=== PATIENT | male | born 1960 | race Caucasian/White ===

== ENCOUNTER 2016-12-15 17:51 | Inpatient (IN) | payer BC ==
[~2016-12-15] VITALS: Ht 177.8 cm; Wt 108.7 kg
--- NOTE | ~2016-12-15 | EKG ---
[place], [place] ELECTROCARDIOGRAM REPORT NAME: ROSALINA CHRISTINE UNIT #: [id number] ROOM: 506 DOCTOR: JOSE MIGUEL GLASS,ADRI BIRTHDATE: [birth year] DOS: 12/15/2016 TIME: 1820 hours. INTERPRETATION: 1. Sinus tachycardia. 2. Incomplete right bundle branch block. ADRI GILLESPIE MD CM:[id number]:ELECTROCARDIOGRAM REPORT [id number] ADRI GILLESPIE MD
[~2016-12-15 17:51] MED LIST: OPANA ER20 MG PO; PRAVACHOL10 MG PO; PRISTIQ50 MG PO; Percocet 325 MG1 TAB PO
[2016-12-15 17:59] VITALS: BP 142/89
[2016-12-15 18:30] LABS: BASO % 0.2 % (0.0-1.0); EOS # 0.1 10*3/uL (0.0-0.4); EOS % 0.3 % (1.0-4.0); HEMOGLOBIN 14.4 g/dl (14.0-18.0); MEAN CELL VOLUME 91.7 fl (80.0-94.0); MEAN CORPUSCULAR HGB 31.4 pg (27.0-31.0); MEAN CORPUSCULAR HGB CONC 34.3 g/dl (33.0-37.0); MEAN PLATELET VOLUME 9.4 fl (9.6-12.3); MONO # 1.2 10*3/uL (0.1-1.0); MONO % 7.2 % (3.0-9.0); NEUT # 14.8 10*3/uL (2.3-7.9); PLATELET COUNT AUTOMATED 147 10*3/uL (130-400); RED BLOOD COUNT 4.58 10*6/uL (4.50-5.90); WHITE BLOOD COUNT 17.2 10*3/uL (4.8-10.8)
[2016-12-15 18:47] LABS: ALBUMIN 3.4 gm/dl (3.1-4.5); ALKALINE PHOSPHATASE 92 U/L (45-117); BUN 13 mg/dl (7-24); CHLORIDE 101 mmol/L (98-107); CREATININE 0.95 mg/dL (0.70-1.30); POTASSIUM 4.2 mmol/L (3.5-5.1); SGOT/AST 17 IU/L (3-35); SGPT/ALT 31 U/L (12-78); SODIUM 137 mmol/L (136-145); TOTAL PROTEIN 7.2 gm/dL (6.4-8.2)
[2016-12-15 18:49] LABS: TROPONIN I < 0.015 ng/ml (<0.045)
[2016-12-15 18:56] LABS: BILIRUBIN NEGATIVE (NEGATIVE); BLOOD 3+ (NEGATIVE); CLARITY CLOUDY (CLEAR); COLOR YELLOW (YELLOW); GLUCOSE NEGATIVE (NEGATIVE); KETONE NEGATIVE (NEGATIVE); LEUKO ESTERASE 3+ (NEGATIVE); NITRITE POSITIVE (NEGATIVE); PH 6.5 (5.0-9.0); UROBILINOGEN 0.2 E.U./dl (0.2-1.0)
[2016-12-15 19:04] LABS: BACTERIA 4+; EPITHELIAL CELLS 0-2; RBC TNTC rbc/hpf (0-2); WBC TNTC wbc/hpf (0-5)
[2016-12-15 19:45] VITALS: BP 165/86
[2016-12-15 20:48] VITALS: BP 124/73
--- NOTE | 2016-12-15 20:48 | NUR ---
A 56, admitted to , under the services of NBA Salmon DO with a diagnosis of SEPSIS, UTI. Chief complaint is FEVER TODAY AFTER HAVING BIOPSY DONE ON PROSTATE ON SATURDAY. HAVING DIFFICULTY URINATING. Patient arrived via stretcher from ER. Monitor applied. Initial assessment completed. Vital signs taken and recorded. NBA SALMON DO notified of admission to the unit. Orders received. See assessment for past medical history, medications and allergies. Patient and/or family oriented to unit. [facility] visitation policy reviewed. Clothing/patient valuable form completed. DEBI PERDUE
--- NOTE | 2016-12-15 21:35 | NUR ---
NOTIFIED DR. JEFFREY OF PT. CONDITION,VITAL SIGNS. ORDER RECEIVED TO ADD VANCOMYCIN.
--- NOTE | 2016-12-15 22:39 | NUR ---
PT. RETURNED FROM CT VIA W/C. NORCO GIVEN PER ORDER FOR HEADACHE/JOINT PAIN RATED "9". SEE JUN.
--- NOTE | 2016-12-15 23:30 | NUR ---
PT. STATED GRACE IS HELPING WITH DISCOMFORT.
[2016-12-16] VITALS: BP 114/61
--- NOTE | 2016-12-16 03:58 | NUR ---
TYLENOL GIVEN PER ORDER FOR HEADACHE AND GENERAL BODY ACHES. SEE MAR.
[2016-12-16 04:00] VITALS: BP 125/72
--- NOTE | 2016-12-16 05:00 | NUR ---
PER PT. TYLENOL HELPING WITH GENERAL ACHES AND HEADACHE.
[2016-12-16 06:41] LABS: BASO % 0.2 % (0.0-1.0); EOS % 0.1 % (1.0-4.0); HEMOGLOBIN 13.6 g/dl (14.0-18.0); LYMPH # 1.6 10*3/uL (1.3-4.4); LYMPH % 9.4 % (27.0-41.0); MEAN CORPUSCULAR HGB 30.8 pg (27.0-31.0); MEAN CORPUSCULAR HGB CONC 33.2 g/dl (33.0-37.0); MEAN PLATELET VOLUME 9.8 fl (9.6-12.3); MONO # 1.5 10*3/uL (0.1-1.0); MONO % 8.7 % (3.0-9.0); NEUT % 80.8 % (47.0-73.0); PLATELET COUNT AUTOMATED 134 10*3/uL (130-400); RED BLOOD COUNT 4.41 10*6/uL (4.50-5.90); RED CELL DISTRI WIDTH 12.1 % (0-14.5); WHITE BLOOD COUNT 17.3 10*3/uL (4.8-10.8)
[2016-12-16 07:08] LABS: ALKALINE PHOSPHATASE 75 U/L (45-117); BUN 9 mg/dl (7-24); CHLORIDE 106 mmol/L (98-107); CHOLESTEROL 161 mg/dL (<200); CREATININE 0.79 mg/dL (0.70-1.30); HDL CHOLESTEROL 61 mg/dl (40-60); LDL CHOLESTEROL 88 mg/dL (9-159); MAGNESIUM 2.2 mg/dL (1.5-2.1); PHOSPHOROUS 2.4 mg/dL (2.5-4.9); POTASSIUM 3.6 mmol/L (3.5-5.1); SGOT/AST 14 IU/L (3-35); SGPT/ALT 26 U/L (12-78); SODIUM 138 mmol/L (136-145); TOTAL PROTEIN 6.4 gm/dL (6.4-8.2); TRIGLYCERIDES 58 mg/dl (<150); VLDL CHOLESTEROL 12 mg/dL (6-40)
[2016-12-16 07:17] LABS: VITAMIN D, 25-HYDROXY 29.8 ng/mL (30-100)
[2016-12-16] MEDS ORDERED: VITAMIN D5000 UNIT PO (07:22)
[2016-12-16 07:37] VITALS: BP 111/63
--- NOTE | 2016-12-16 09:41 | NUR ---
PT GIVEN PO NORCO PER PRN ORDER FOR C/O JOINT PAIN/DISCOMFORT. WILL MONITOR EFFECTIVENESS. CALL LIGHT WITHIN REACH.
--- NOTE | 2016-12-16 11:13 | NUR ---
PAIN BEING RELIEVED PER PT.
[2016-12-16 11:43] VITALS: BP 113/72
--- NOTE | 2016-12-16 14:59 | NUR ---
PT GIVEN PO PERCOCET PER PRN ORDER FOR C/O PAIN/DISCOMFORT. WILL MONITOR EFFECTIVENESS.
[2016-12-16 16:00] VITALS: BP 142/80
--- NOTE | 2016-12-16 16:36 | NUR ---
PERCOCET RELIEVING PAIN PER PT.
--- NOTE | 2016-12-16 19:54 | NUR ---
TYLENOL GIVEN PER ORDER FOR GENERALIZED BODY ACHES. SEE MAR. DUKES EMPTIED FOR 1650CC. ENCOURAGE PATIENT TO GET UP AND AMBULATE IN ROOM/HALLWAY. NO SLIP SOCKS GIVEN, GOWN GIVEN. EDUCATION DONE OF HOW CULTURES AND PROCESS OF WORKS FAR MEDICATIONS/INFECTION PROCESS AND ALSO NEED TO GET OUT OF BED A MOVE. PT. VOICED UNDERSTANDING WITH ALL.
[2016-12-16 20:00] VITALS: BP 127/67
--- NOTE | 2016-12-16 20:50 | NUR ---
PER PT. TYLENOL EFFECTIVE FOR HEADACHE BUT NOT JOINT PAIN.
--- NOTE | 2016-12-16 22:54 | NUR ---
PERCOCET GIVEN FOR JOINT PAIN PER PT, RATED "7" SEE MAR.
--- NOTE | 2016-12-16 23:50 | NUR ---
PER PT. PERCOCET EFFECTIVE FOR PAIN.
[2016-12-17] VITALS: BP 121/67
--- NOTE | 2016-12-17 05:42 | NUR ---
TYLENOL GIVEN PER ORDER FOR GENERAL BODY ACHES RATED "4-5" AND HEADACHE RATED "4". SEE MAR.
--- NOTE | 2016-12-17 06:40 | NUR ---
TYLENOL EFFECTIVE FOR HEADACHE/BODY ACHE PER PT.
[2016-12-17 08:00] VITALS: BP 114/76
--- NOTE | 2016-12-17 08:26 | NUR ---
MEDICATED FRO BACK PAIN OF 6/10.
--- NOTE | 2016-12-17 10:21 | NUR ---
STATES THAT EARLIER MEDICATION WAS EFFECTIVE.
[2016-12-17 11:20] LABS: BASO # 0.1 10*3/uL (0.0-0.1); BASO % 0.4 % (0.0-1.0); EOS # 0.2 10*3/uL (0.0-0.4); EOS % 1.1 % (1.0-4.0); HEMATOCRIT 41.8 % (42.0-52.0); HEMOGLOBIN 13.8 g/dl (14.0-18.0); LYMPH # 2.3 10*3/uL (1.3-4.4); LYMPH % 16.7 % (27.0-41.0); MEAN CELL VOLUME 93.3 fl (80.0-94.0); MEAN CORPUSCULAR HGB 30.8 pg (27.0-31.0); MEAN PLATELET VOLUME 9.4 fl (9.6-12.3); MONO # 0.8 10*3/uL (0.1-1.0); MONO % 5.6 % (3.0-9.0); NEUT # 10.3 10*3/uL (2.3-7.9); NEUT % 75.6 % (47.0-73.0); PLATELET COUNT AUTOMATED 142 10*3/uL (130-400); RED BLOOD COUNT 4.48 10*6/uL (4.50-5.90); WHITE BLOOD COUNT 13.6 10*3/uL (4.8-10.8)
[2016-12-17 11:38] LABS: ALKALINE PHOSPHATASE 87 U/L (45-117); BUN 10 mg/dl (7-24); CHLORIDE 106 mmol/L (98-107); CREATININE 0.77 mg/dL (0.70-1.30); POTASSIUM 4.4 mmol/L (3.5-5.1); SGOT/AST 18 IU/L (3-35); SGPT/ALT 31 U/L (12-78); SODIUM 139 mmol/L (136-145)
[2016-12-17 12:00] VITALS: BP 120/76
[2016-12-17 16:00] VITALS: BP 122/80
[2016-12-17 20:00] VITALS: BP 133/79
--- NOTE | 2016-12-17 20:59 | NUR ---
PATIENT GIVEN PERCOCET FOR 6/10 BACK PAIN AND RSTORIL TO HELP HIM SLEEP.
--- NOTE | 2016-12-17 22:23 | NUR ---
PERCOCET EFFECTIVE PAIN IS NOW 2/10.
[2016-12-18] VITALS: BP 115/75
--- NOTE | 2016-12-18 02:00 | NUR ---
Patient resting quietly with no c/o discomfort. Respirations easy and regular. Vital signs stable. No overt distress. PAUL WANG R
[2016-12-18 06:54] LABS: BASO % 0.4 % (0.0-1.0); EOS # 0.3 10*3/uL (0.0-0.4); EOS % 2.7 % (1.0-4.0); LYMPH % 19.5 % (27.0-41.0); MEAN CELL VOLUME 92.7 fl (80.0-94.0); MEAN CORPUSCULAR HGB 30.9 pg (27.0-31.0); MEAN CORPUSCULAR HGB CONC 33.3 g/dl (33.0-37.0); MEAN PLATELET VOLUME 9.6 fl (9.6-12.3); MONO # 0.7 10*3/uL (0.1-1.0); MONO % 6.8 % (3.0-9.0); NEUT # 7.1 10*3/uL (2.3-7.9); NEUT % 69.9 % (47.0-73.0); PLATELET COUNT AUTOMATED 170 10*3/uL (130-400); RED BLOOD COUNT 4.53 10*6/uL (4.50-5.90); RED CELL DISTRI WIDTH 12.1 % (0-14.5); WHITE BLOOD COUNT 10.1 10*3/uL (4.8-10.8)
[2016-12-18 07:30] LABS: BUN 11 mg/dl (7-24); CHLORIDE 104 mmol/L (98-107); POTASSIUM 4.3 mmol/L (3.5-5.1); SODIUM 140 mmol/L (136-145)
--- NOTE | 2016-12-18 07:30 | NUR ---
ASSUMED CARE OF PT AT THIS TIME, PT IS ALERT AND ORIETNED, SITTING UP IN CHIAR AT BEDSIDE
[2016-12-18 08:00] VITALS: BP 114/83
--- NOTE | 2016-12-18 08:41 | NUR ---
CALL PLACED TO OFFICE AT THIS TIME SPOKE WITH SUZETTE, R/T N/O FOR CONSULT OF PROSTITIS AND RECOMMENDATION OF ATB
--- NOTE | 2016-12-18 09:00 | NUR ---
Director Of Personnel in to talk to patient. Patient states lives at home with alone. There are few steps in the home. Physician: kareem natarajan Pharmacy: [facility] Hospital services: none Patient's level of ADLs: INDEPENDENT Patient has working utilities: all working DME: none Follow-up physician's appointment after d/c: will be made by hospitalist nurse director upon discharge Does patient want to access PORTAL?: no Discharge plan discussed with patient, patient lives at home alone, is independent in adls and ambulation, works and drives, patient states he will be going back home and denies any home needs. REJI COTA
--- NOTE | 2016-12-18 10:05 | NUR ---
PT REFUSED LOVENOX INJECTION AT THIS TIME, STATES THAT HE DOES NOT WANT THIS MEDICATION, EDUCATION PROVIDED BUT INEFFECTIVE. PT C/O BACK PAIN RATING 8/10, REQUESTED AND ADMINISTERED PRN PAIN MEDICATION ORDERED, WILL MONITOR EFFECTS
--- NOTE | 2016-12-18 11:05 | NUR ---
PRN PAIN MEDICATION EFFECTIVE, PT STATES DECREASED PAIN LEVEL IN BACK
[2016-12-18 12:00] VITALS: BP 130/81
--- NOTE | 2016-12-18 12:45 | NUR ---
insurance demos given to yaa, reference number is [id number], emailed corporate fax number [phone]
[2016-12-18 16:00] VITALS: BP 126/78
--- NOTE | 2016-12-18 18:05 | NUR ---
PT C/O PAIN IN THE BACK, REQUESTED AND ADMINSITERED PO PRN PAIN MEDICATION ORDERED WILL MONITOR EFFECTS
--- NOTE | 2016-12-18 19:50 | NUR ---
PT AWAKE IN BED. DENIES DYSURIA. CALL LIGHT IN REACH.
[2016-12-18 20:00] VITALS: BP 122/81; BP 122/851
--- NOTE | 2016-12-18 23:15 | NUR ---
PT MEDICATED WITH PRN MORPHINE IVP AND RESTORIL PO FOR C/O BACK PAIN AND INSOMNIA.
[2016-12-19] VITALS: BP 135/84
--- NOTE | 2016-12-19 | NUR ---
PT RESTING QUIETLY IN BED. NO FURTHER C/O PAIN/INSOMNIA.
--- NOTE | 2016-12-19 07:26 | NUR ---
PT OFF FLOOR TO HAVE PICC LINE INSERTED
--- NOTE | 2016-12-19 07:29 | NUR ---
PATIENT OFF FLOOR FOR PICC LINE AT THIS TIME.
[2016-12-19 08:00] VITALS: BP 113/87
[2016-12-19 08:53] LABS: BASO # 0.1 10*3/uL (0.0-0.1); BASO % 0.6 % (0.0-1.0); EOS # 0.3 10*3/uL (0.0-0.4); EOS % 3.1 % (1.0-4.0); HEMATOCRIT 44.4 % (42.0-52.0); HEMOGLOBIN 14.9 g/dl (14.0-18.0); LYMPH # 1.9 10*3/uL (1.3-4.4); LYMPH % 20.9 % (27.0-41.0); MEAN CELL VOLUME 92.9 fl (80.0-94.0); MEAN CORPUSCULAR HGB 31.2 pg (27.0-31.0); MEAN CORPUSCULAR HGB CONC 33.6 g/dl (33.0-37.0); MEAN PLATELET VOLUME 9.2 fl (9.6-12.3); MONO # 0.6 10*3/uL (0.1-1.0); MONO % 7.1 % (3.0-9.0); NEUT % 67.6 % (47.0-73.0); PLATELET COUNT AUTOMATED 181 10*3/uL (130-400); RED BLOOD COUNT 4.78 10*6/uL (4.50-5.90); WHITE BLOOD COUNT 8.9 10*3/uL (4.8-10.8)
[2016-12-19 09:03] LABS: BUN 13 mg/dl (7-24); CHLORIDE 104 mmol/L (98-107); CREATININE 0.69 mg/dL (0.70-1.30); SODIUM 140 mmol/L (136-145)
--- NOTE | 2016-12-19 09:38 | NUR ---
case management visits with patient, discussed with him home iv antibiotics, patient stated that he would be fine administering them to himself, also discussed a VNA and he chose [facility], will notify [facility] when patient is medically stable for discharge
--- NOTE | 2016-12-19 09:39 | NUR ---
PT REQUESTED PAIN MEDICATION FOR BACK PAIN, ADMINISTERED PRN PAIN MEDICATION ORDERED. WILL MONITOR EFFECTS
[2016-12-19 12:00] VITALS: BP 122/76
[2016-12-19] MEDS ORDERED: CEFTAZIDIME IV (12:26)
--- NOTE | 2016-12-19 12:50 | NUR ---
case management recieved a script for patient's home iv antibiotics, called [facility], spoke to Polly, patient's information faxed to her, patient will recieved his last dose tonight prior to discharge and services at home will start tomorrow in am, regional planner will notify [facility]
[2016-12-19] MEDS ORDERED: B12,B-12,B 12500 MC1 PO (14:01)
--- NOTE | 2016-12-19 14:35 | NUR ---
case management received a call from Ana at [facility], patient has a $1000 deductible that he has met $396 of, he will need to pay $300 upon delivery of medication, Ana talked with patient and he is able to pay this amount, [facility] will deliver his medication and [facility] will start care tomorrow in am, hospitalist nurse director notified
--- NOTE | 2016-12-19 16:32 | NUR ---
Discharge instructions reviewed with patient/family. Patient receptive and verbalizes understanding. Follow-up care arranged. Written instructions given to patient/family. LUIS WOLFE
== END 2016-12-19 16:32 | disposition home health service (06) | DRG 872 ==
LOC: ED 17:51 → EDHOLD 19:18 → 5E 19:18
PROVIDERS: Hospitalist; Internal Medicine; Nurse Practitioner Family; ADMIT Internal Medicine
PROC: 02HV33Z Insertion of Infusion Device into Superior Vena Cava, Percutaneous Approach (ICD-10-PCS; principal; 2016-12-18)
DX: A41.9 Sepsis, unspecified organism (principal); E44.0 Moderate protein-calorie malnutrition; E83.39 Other disorders of phosphorus metabolism; E83.41 Hypermagnesemia; N41.0 Acute prostatitis; N39.0 Urinary tract infection, site not specified; Z68.34 Body mass index [BMI] 34.0-34.9, adult; D64.9 Anemia, unspecified; E53.8 Deficiency of other specified B group vitamins; E55.9 Vitamin D deficiency, unspecified; E66.9 Obesity, unspecified; I10 Essential (primary) hypertension; N40.1 Benign prostatic hyperplasia with lower urinary tract symptoms; R39.11 Hesitancy of micturition; Z79.899 Other long term (current) drug therapy; Z90.49 Acquired absence of other specified parts of digestive tract; Z83.6 Family history of other diseases of the respiratory system; Z82.49 Family history of ischemic heart disease and other diseases of the circulatory system

== ENCOUNTER → 2016-12-31 | Outpatient (CLI) | payer BC ==
[~2016-12-31] MED LIST changes: +B12,B-12,B 12500 MC1 PO; +CEFTAZIDIME IV; +VITAMIN D5000 UNIT PO
[2016-12-31 16:11] LABS: BASO # 0.1 10*3/uL (0.0-0.1); BASO % 0.8 % (0.0-1.0); EOS # 0.3 10*3/uL (0.0-0.4); EOS % 3.3 % (1.0-4.0); HEMATOCRIT 42.5 % (42.0-52.0); HEMOGLOBIN 14.3 g/dl (14.0-18.0); LYMPH # 2.6 10*3/uL (1.3-4.4); LYMPH % 34.4 % (27.0-41.0); MEAN CORPUSCULAR HGB 31.3 pg (27.0-31.0); MEAN CORPUSCULAR HGB CONC 33.6 g/dl (33.0-37.0); MEAN PLATELET VOLUME 9.3 fl (9.6-12.3); MONO # 0.6 10*3/uL (0.1-1.0); MONO % 7.4 % (3.0-9.0); NEUT # 4.1 10*3/uL (2.3-7.9); NEUT % 53.7 % (47.0-73.0); PLATELET COUNT AUTOMATED 221 10*3/uL (130-400); RED BLOOD COUNT 4.57 10*6/uL (4.50-5.90); RED CELL DISTRI WIDTH 11.9 % (0-14.5); WHITE BLOOD COUNT 7.6 10*3/uL (4.8-10.8)
[2016-12-31 16:38] LABS: ALBUMIN 3.6 gm/dl (3.1-4.5); ALKALINE PHOSPHATASE 81 U/L (45-117); BILIRUBIN, DIRECT < 0.1 mg/dL (0.0-0.2); BUN 17 mg/dl (7-24); CREATININE 0.97 mg/dL (0.70-1.30); SGOT/AST 16 IU/L (3-35); SGPT/ALT 40 U/L (12-78)
== END | disposition home or self-care (01) ==
LOC: LAB 15:36
PROVIDERS: Internal Medicine Infectious Disease
DX: R79.89 Other specified abnormal findings of blood chemistry (principal); Z79.2 Long term (current) use of antibiotics

== ENCOUNTER → 2017-01-03 | Outpatient (CLI) | payer BC ==
[2017-01-03 14:23] LABS: BASO # 0.1 10*3/uL (0.0-0.1); BASO % 0.9 % (0.0-1.0); EOS # 0.2 10*3/uL (0.0-0.4); EOS % 3.2 % (1.0-4.0); HEMATOCRIT 39.5 % (42.0-52.0); LYMPH # 2.4 10*3/uL (1.3-4.4); LYMPH % 42.8 % (27.0-41.0); MEAN CELL VOLUME 94.5 fl (80.0-94.0); MEAN CORPUSCULAR HGB 31.1 pg (27.0-31.0); MEAN CORPUSCULAR HGB CONC 32.9 g/dl (33.0-37.0); MEAN PLATELET VOLUME 9.5 fl (9.6-12.3); MONO # 0.5 10*3/uL (0.1-1.0); MONO % 8.6 % (3.0-9.0); NEUT # 2.5 10*3/uL (2.3-7.9); NEUT % 44.3 % (47.0-73.0); PLATELET COUNT AUTOMATED 189 10*3/uL (130-400); RED BLOOD COUNT 4.18 10*6/uL (4.50-5.90); WHITE BLOOD COUNT 5.7 10*3/uL (4.8-10.8)
[2017-01-03 14:36] LABS: ALBUMIN 3.5 gm/dl (3.1-4.5); ALKALINE PHOSPHATASE 75 U/L (45-117); BILIRUBIN, DIRECT < 0.1 mg/dL (0.0-0.2); BUN 14 mg/dl (7-24); CREATININE 0.84 mg/dL (0.70-1.30); SGOT/AST 16 IU/L (3-35); SGPT/ALT 33 U/L (12-78); TOTAL PROTEIN 6.8 gm/dL (6.4-8.2)
== END | disposition home or self-care (01) ==
LOC: LAB 02:13
PROVIDERS: Internal Medicine Infectious Disease
DX: Z79.2 Long term (current) use of antibiotics (principal)

== ENCOUNTER → 2017-01-05 | Outpatient (CLI) | payer BC | END | disposition home or self-care (01) | LOC: US 10:45 | DX: K76.0 Fatty (change of) liver, not elsewhere classified (principal); N28.89 Other specified disorders of kidney and ureter ==

== ENCOUNTER → 2017-01-07 | Outpatient (CLI) | payer BC ==
--- NOTE | 2017-01-07 13:40 | NUR ---
CLIENT AMBULATORY TO TREATMENT AREA FOR PICC BLOOD DRAW THEN FLUSH. CAP WAS PREPPED. BRISK BLOOD RETURN WAS NOTED. APPROPRIATE AMOUNT OF BLOOD WAS WASTED. SPECIMEN WAS OBTAINED AND SENT TO LAB. PORT WAS THEN FLUSHED PER POLICY. CLIENT THEN AMBULATED FROM TREATMENT AREA IN STABLE CONDITION
[2017-01-07 14:05] LABS: BASO % 0.8 % (0.0-1.0); EOS # 0.4 10*3/uL (0.0-0.4); EOS % 6.7 % (1.0-4.0); HEMATOCRIT 40.9 % (42.0-52.0); HEMOGLOBIN 13.7 g/dl (14.0-18.0); LYMPH # 2.3 10*3/uL (1.3-4.4); LYMPH % 43.9 % (27.0-41.0); MEAN CELL VOLUME 93.4 fl (80.0-94.0); MEAN CORPUSCULAR HGB 31.3 pg (27.0-31.0); MEAN CORPUSCULAR HGB CONC 33.5 g/dl (33.0-37.0); MEAN PLATELET VOLUME 9.7 fl (9.6-12.3); MONO # 0.4 10*3/uL (0.1-1.0); NEUT # 2.1 10*3/uL (2.3-7.9); NEUT % 40.4 % (47.0-73.0); PLATELET COUNT AUTOMATED 161 10*3/uL (130-400); RED BLOOD COUNT 4.38 10*6/uL (4.50-5.90); RED CELL DISTRI WIDTH 12.1 % (0-14.5); WHITE BLOOD COUNT 5.2 10*3/uL (4.8-10.8)
[2017-01-07 14:26] LABS: ALBUMIN 3.5 gm/dl (3.1-4.5); ALKALINE PHOSPHATASE 74 U/L (45-117); BILIRUBIN, DIRECT < 0.1 mg/dL (0.0-0.2); BUN 12 mg/dl (7-24); CREATININE 0.83 mg/dL (0.70-1.30); SGOT/AST 19 IU/L (3-35); SGPT/ALT 32 U/L (12-78); TOTAL PROTEIN 6.8 gm/dL (6.4-8.2)
== END | disposition home or self-care (01) ==
LOC: LAB 03:00
PROVIDERS: Internal Medicine Infectious Disease
DX: Z79.2 Long term (current) use of antibiotics (principal)

== ENCOUNTER → 2017-01-17 | Outpatient (CLI) | payer BC | END | disposition home or self-care (01) | LOC: LAB 00:41 | DX: Z53.9 Procedure and treatment not carried out, unspecified reason (principal) ==

== ENCOUNTER → 2017-02-28 | Outpatient (CLI) | payer BC ==
[2017-02-28 17:29] LABS: BILIRUBIN NEGATIVE (NEGATIVE); BLOOD 1+ (NEGATIVE); CLARITY CLOUDY (CLEAR); COLOR YELLOW (YELLOW); GLUCOSE NEGATIVE (NEGATIVE); KETONE NEGATIVE (NEGATIVE); LEUKO ESTERASE 2+ (NEGATIVE); NITRITE POSITIVE (NEGATIVE); PH 6.5 (5.0-9.0); UROBILINOGEN 0.2 E.U./dl (0.2-1.0)
[2017-02-28 17:38] LABS: BACTERIA 2+; WBC 51-100 wbc/hpf (0-5)
== END | disposition home or self-care (01) ==
LOC: LAB 16:54
PROVIDERS: Internal Medicine
DX: R35.1 Nocturia (principal); R35.0 Frequency of micturition

== ENCOUNTER 2023-04-02 14:00 | Emergency (ER) | payer OTHER ==
[~2023-04-02] VITALS: Ht 175.2 cm; Wt 108.9 kg
[2023-04-02 14:11] VITALS: BP 168/104
[2023-04-02 14:43] LABS: BASO # 0.1 10*3/uL (0.0-0.1); EOS # 0.2 10*3/uL (0.0-0.4); EOS % 3.6 % (1.0-4.0); HEMATOCRIT 47.1 % (42.0-52.0); LYMPH # 2.5 10*3/uL (1.3-4.4); LYMPH % 41.3 % (27.0-41.0); MEAN CELL VOLUME 92.7 fl (80.0-94.0); MEAN CORPUSCULAR HGB 31.1 pg (27.0-31.0); MEAN CORPUSCULAR HGB CONC 33.5 g/dl (33.0-37.0); MEAN PLATELET VOLUME 8.9 fl (9.6-12.3); MONO # 0.5 10*3/uL (0.1-1.0); MONO % 8.4 % (3.0-9.0); NEUT # 2.8 10*3/uL (2.3-7.9); NEUT % 45.4 % (47.0-73.0); PLATELET COUNT AUTOMATED 185 10*3/uL (130-400); RED BLOOD COUNT 5.08 10*6/uL (4.50-5.90); RED CELL DISTRI WIDTH 11.6 % (0-14.5); WHITE BLOOD COUNT 6.1 10*3/uL (4.8-10.8)
[2023-04-02 14:55] LABS: ACT PARTIAL THROMBO TIME 28.8 SECONDS (20.0-32.1)
[2023-04-02 15:14] LABS: ALKALINE PHOSPHATASE 72 U/L (46-116); BUN 13 mg/dl (9-23); CHLORIDE 105 mmol/L (98-107); POTASSIUM 4.5 mmol/L (3.4-5.1); SGPT/ALT 30 U/L (5-49); TOTAL PROTEIN 6.8 gm/dL (6.0-8.0)
[2023-04-02] MEDS ORDERED: Vibra-Tab100 MG PO (16:28)
[2023-04-02] MEDS ORDERED: AMOX-CLAV 875-1 EACH PO (16:28)
== END 2023-04-02 16:58 | disposition home or self-care (01) ==
LOC: ED 14:00
PROVIDERS: Nurse Practitioner Family
DX: J18.9 Pneumonia, unspecified organism (principal); R07.89 Other chest pain; E83.41 Hypermagnesemia; E83.39 Other disorders of phosphorus metabolism; D64.9 Anemia, unspecified; I10 Essential (primary) hypertension; F32.A Depression, unspecified; Z90.49 Acquired absence of other specified parts of digestive tract; Z98.890 Other specified postprocedural states

== ENCOUNTER 2023-05-04 11:31 | Emergency (ER) | payer OTHER ==
[~2023-05-04] VITALS: Ht 175.2 cm; Wt 108.9 kg
[~2023-05-04 11:31] MED LIST changes: +AMOX-CLAV 875-1 EACH PO; +Vibra-Tab100 MG PO
[2023-05-04 11:52] VITALS: BP 139/96
[2023-05-04 12:27] LABS: BILIRUBIN Negative (Negative); BLOOD Trace-Lysed (Negative); CLARITY Cloudy (Clear); COLOR Yellow (Yellow); GLUCOSE Negative (Negative); KETONE Trace (Negative); LEUKO ESTERASE 2+ (Negative); NITRITE Negative (Negative); PH 6.5 (4.5-8.0)
[2023-05-04 12:29] LABS: BASO % 0.2 % (0.0-1.0); EOS % 0.1 % (1.0-4.0); HEMATOCRIT 48.2 % (42.0-52.0); LYMPH % 6.3 % (27.0-41.0); MEAN CELL VOLUME 93.1 fl (80.0-94.0); MEAN CORPUSCULAR HGB 30.7 pg (27.0-31.0); MEAN PLATELET VOLUME 9.2 fl (9.6-12.3); MONO # 0.9 10*3/uL (0.1-1.0); MONO % 5.5 % (3.0-9.0); NEUT # 13.4 10*3/uL (2.3-7.9); NEUT % 87.4 % (47.0-73.0); PLATELET COUNT AUTOMATED 169 10*3/uL (130-400); RED BLOOD COUNT 5.18 10*6/uL (4.50-5.90); RED CELL DISTRI WIDTH 11.9 % (0-14.5); WHITE BLOOD COUNT 15.3 10*3/uL (4.8-10.8)
[2023-05-04 12:43] LABS: BACTERIA 4+; EPITHELIAL CELLS 0-2; RBC 0-2 rbc/hpf (0-2); WBC 41-50 wbc/hpf (0-5)
[2023-05-04 12:51] LABS: ALKALINE PHOSPHATASE 69 U/L (46-116); BUN 10 mg/dl (9-23); CHLORIDE 105 mmol/L (98-107); SGPT/ALT 26 U/L (5-49); TOTAL PROTEIN 7.1 gm/dL (6.0-8.0)
[2023-05-04] MEDS ORDERED: FLOMAX0.4 MG PO (13:03)
[2023-05-04] MEDS ORDERED: CIPRO500 MG PO (13:45)
== END 2023-05-04 13:45 | disposition home or self-care (01) ==
LOC: ED 11:31
PROVIDERS: Nurse Practitioner
DX: R33.9 Retention of urine, unspecified (principal); N39.0 Urinary tract infection, site not specified; F32.A Depression, unspecified; Z90.49 Acquired absence of other specified parts of digestive tract; Z98.890 Other specified postprocedural states

== ENCOUNTER → 2023-05-16 | Outpatient (CLI) | payer OTHER ==
[~2023-05-16] MED LIST changes: +CIPRO500 MG PO; +FLOMAX0.4 MG PO
[2023-05-16 15:28] LABS: BASO # 0.1 10*3/uL (0.0-0.1); EOS # 0.2 10*3/uL (0.0-0.4); EOS % 2.1 % (1.0-4.0); HEMATOCRIT 48.1 % (42.0-52.0); LYMPH # 2.7 10*3/uL (1.3-4.4); LYMPH % 28.4 % (27.0-41.0); MEAN CELL VOLUME 92.1 fl (80.0-94.0); MEAN CORPUSCULAR HGB 30.7 pg (27.0-31.0); MEAN CORPUSCULAR HGB CONC 33.3 g/dl (33.0-37.0); MEAN PLATELET VOLUME 8.6 fl (9.6-12.3); MONO # 0.4 10*3/uL (0.1-1.0); MONO % 4.6 % (3.0-9.0); NEUT % 63.3 % (47.0-73.0); PLATELET COUNT AUTOMATED 224 10*3/uL (130-400); RED BLOOD COUNT 5.22 10*6/uL (4.50-5.90); RED CELL DISTRI WIDTH 11.9 % (0-14.5); WHITE BLOOD COUNT 9.4 10*3/uL (4.8-10.8)
[2023-05-16 15:51] LABS: ALKALINE PHOSPHATASE 79 U/L (46-116); BUN 10 mg/dl (9-23); CHLORIDE 106 mmol/L (98-107); POTASSIUM 4.4 mmol/L (3.4-5.1); SGPT/ALT 29 U/L (5-49); TOTAL PROTEIN 7.1 gm/dL (6.0-8.0)
== END | disposition home or self-care (01) ==
LOC: LAB 15:05
PROVIDERS: ATTEND Urology
DX: D40.0 Neoplasm of uncertain behavior of prostate (principal); R53.83 Other fatigue

== ENCOUNTER → 2023-08-01 | Outpatient (CLI) | payer OTHER ==
[2023-08-01 09:24] LABS: BASO # 0.1 10*3/uL (0.0-0.1); BASO % 1.1 % (0.0-1.0); EOS # 0.2 10*3/uL (0.0-0.4); EOS % 4.2 % (1.0-4.0); LYMPH # 2.5 10*3/uL (1.3-4.4); MEAN CELL VOLUME 93.1 fl (80.0-94.0); MEAN CORPUSCULAR HGB CONC 32.2 g/dl (33.0-37.0); MEAN PLATELET VOLUME 9.1 fl (9.6-12.3); MONO # 0.5 10*3/uL (0.1-1.0); MONO % 9.1 % (3.0-9.0); NEUT # 2.4 10*3/uL (2.3-7.9); NEUT % 41.2 % (47.0-73.0); PLATELET COUNT AUTOMATED 170 10*3/uL (130-400); RED BLOOD COUNT 5.37 10*6/uL (4.50-5.90); RED CELL DISTRI WIDTH 12.4 % (0-14.5); WHITE BLOOD COUNT 5.7 10*3/uL (4.8-10.8)
[2023-08-01 09:57] LABS: ACT PARTIAL THROMBO TIME 29.8 SECONDS (20.0-32.1)
[2023-08-01 10:19] LABS: ALKALINE PHOSPHATASE 66 U/L (46-116); BUN 11 mg/dl (9-23); CHLORIDE 104 mmol/L (98-107); POTASSIUM 4.8 mmol/L (3.4-5.1); SGPT/ALT 33 U/L (5-49); TOTAL PROTEIN 6.8 gm/dL (6.0-8.0)
== END | disposition home or self-care (01) ==
LOC: LAB 08:52
PROVIDERS: ATTEND Urology
DX: Z01.818 Encounter for other preprocedural examination (principal); D68.59 Other primary thrombophilia; I10 Essential (primary) hypertension; J98.4 Other disorders of lung

== ENCOUNTER → 2023-08-29 | Outpatient (CLI) | payer OTHER ==
[~2023-08-29] MED LIST changes: +Technetium Tc 99M Medronate 1 KIT KIT IV SCH
== END | disposition home or self-care (01) ==
LOC: CT 08-28 13:00 → NM 01:03 → CT 13:00
PROVIDERS: ATTEND Urology
DX: C61 Malignant neoplasm of prostate (principal); M47.816 Spondylosis without myelopathy or radiculopathy, lumbar region; M19.012 Primary osteoarthritis, left shoulder; M19.011 Primary osteoarthritis, right shoulder; M19.09 Primary osteoarthritis, other specified site; I25.10 Atherosclerotic heart disease of native coronary artery without angina pectoris; J98.11 Atelectasis; J43.9 Emphysema, unspecified; N28.1 Cyst of kidney, acquired; D35.02 Benign neoplasm of left adrenal gland; I70.0 Atherosclerosis of aorta; K57.30 Diverticulosis of large intestine without perforation or abscess without bleeding; M43.8X6 Other specified deforming dorsopathies, lumbar region; K80.20 Calculus of gallbladder without cholecystitis without obstruction

== ENCOUNTER → 2023-09-13 | Outpatient (CLI) | payer OTHER ==
[~2023-09-13] MED LIST changes: -Technetium Tc 99M Medronate 1 KIT KIT IV SCH
[2023-09-16 07:06] LABS: CREATININE, RANDOM URINE 79.7 mg/dL (Not Estab.)
== END ==
LOC: LAB 07:37
PROVIDERS: ATTEND Internal Medicine
DX: E78.00 Pure hypercholesterolemia, unspecified (principal); E27.8 Other specified disorders of adrenal gland; R73.9 Hyperglycemia, unspecified